=== PATIENT | male | born 1970 ===

== ENCOUNTER → 2018-04-02 17:46 | Outpatient (REF) | payer BC, SELFPAY ==
[2018-04-04 15:18] LABS: Dehydroepiandrosterone Sulfate 128 mcg/dL (70-495)
[2018-04-04 15:33] LABS: Estradiol 32 pg/mL (< 40)
[2018-04-04 18:22] LABS: Sex Hormone Binding Globulin 28 nmol/L (10-50)
[2018-04-06 23:04] LABS: Testosterone Free 24.8 pg/mL (35.0-155.0); Testosterone Total 204 ng/dL (250-1100)
== END ==
LOC: LAB 17:46
PROVIDERS: Visit Provider Naturopath
DX: E29.1 Testicular hypofunction (principal)
CPT/HCPCS: 36415; 82627; 82670; 84270; 84402; 84403